=== PATIENT | female | born 1960 | race Caucasian/White ===

== ENCOUNTER 2016-11-27 14:07 | Inpatient (IN) | payer OTHER ==
[~2016-11-27] VITALS: Ht 162.6 cm; Wt 57.2 kg
[~2016-11-27 14:07] MED LIST: FERL PO; LAC PO; LAC30L PO; LEVAQUIN750 MG PO; PRI20 PO; ZYRTEC10 MG PO
[2016-11-27 15:41] LABS: BASOPHIL % 0.7 % (0-2)
[2016-11-27 15:42] LABS: PLATELET COUNT 89 x10^3mcL (130-400); RED CELL DISTRIBUTION WIDTH 16.6 % (11.5-14.5)
[2016-11-27 15:43] LABS: CALCIUM 9.8 mg/dL (8.5-10.1); CARBON DIOXIDE 29.2 mmol/L (21-32); CHLORIDE SERUM 105 mmol/L (98-107); GFR1 > 60 mL/min; GLUCOSE SERUM 102 mg/dL (74-106); POTASSIUM SERUM 3.8 mmol/L (3.5-5.1); SODIUM SERUM 143 mmol/L (136-145)
[2016-11-27 15:48] LABS: ALBUMIN 3.7 g/dL (3.4-5.0); ALKALINE PHOSPHATASE 75 U/L (46-116); ALT/SGPT 26 U/L (14-59); AST/SGOT 22 U/L (15-37); BILIRUBIN TOTAL 0.5 mg/dL (0.20-1.00)
[2016-11-27] MEDS ORDERED: IMBRUVICA140 MG PO (16:57)
[2016-11-27] MEDS ORDERED: LEVO-T50 MCG PO (16:58)
[2016-11-27] MEDS ORDERED: DUEXIS1 TAB PO (17:00)
[2016-11-27 17:27] LABS: UA SPECIFIC GRAVITY 1.025 (1.005-1.035); microscopic required? YES; urine erythrocyte NEGATIVE (NEGATIVE)
[2016-11-27 18:00] VITALS: BP 128/63
[2016-11-27 18:19] LABS: AMPHETAMINE QUAL UR NONE DETECTED (NEG <=1000)
[2016-11-27 18:28] LABS: T3 TOTAL 0.83 ng/mL
[2016-11-27 18:50] LABS: FREE T4 1.18 ng/dL (0.76-1.46); FREE THYROXINE INDEX 3.6 ug/dL (1.4-4.5)
[2016-11-27 19:06] LABS: PHOSPHOROUS 4.1 mg/dL (2.5-4.9)
[2016-11-27 21:39] VITALS: BP 121/53
[2016-11-28 05:46] VITALS: BP 100/61
[2016-11-28 06:44] LABS: CALCIUM 8.1 mg/dL (8.5-10.1); CHLORIDE SERUM 109 mmol/L (98-107); GFR1 > 60 mL/min; GLUCOSE SERUM 126 mg/dL (74-106); SODIUM SERUM 143 mmol/L (136-145)
[2016-11-28 09:19] VITALS: BP 127/88
[2016-11-28 13:44] VITALS: BP 115/60
[2016-11-28 17:36] VITALS: BP 92/62
[2016-11-28 20:51] VITALS: BP 101/53
[2016-11-29 05:44] VITALS: BP 126/55
[2016-11-29 06:34] LABS: BASOPHIL % 0.6 % (0-2); PLATELET COUNT 77 x10^3mcL (130-400); RED CELL DISTRIBUTION WIDTH 16.8 % (11.5-14.5)
[2016-11-29 06:54] LABS: CALCIUM 7.8 mg/dL (8.5-10.1); CARBON DIOXIDE 27.8 mmol/L (21-32); CHLORIDE SERUM 106 mmol/L (98-107); GFR1 > 60 mL/min; GLUCOSE SERUM 95 mg/dL (74-106); POTASSIUM SERUM 3.5 mmol/L (3.5-5.1); SODIUM SERUM 141 mmol/L (136-145)
[2016-11-29 07:52] LABS: rbc morphology (normal/abnorm) ABNORMAL (NORMAL)
[2016-11-29 09:16] VITALS: BP 105/60
[2016-11-29] MEDS ORDERED: FER300 PO (09:43)
[2016-11-29] MEDS ORDERED: OSCD PO (09:44)
[2016-11-29] MEDS ORDERED: MOT800 PO (09:44)
[2016-11-29] MEDS ORDERED: MAC100 PO (09:45)
[2016-11-29 12:57] VITALS: BP 105/60
== END 2016-11-29 16:16 | disposition home or self-care (01) | DRG 54 ==
LOC: ED 14:07 → DU 16:29 → MU 16:29 → DU 17:26 → MU 11-29 07:00
PROVIDERS: Emergency Medicine; ADMIT Family Medicine
DX: G44.41 Drug-induced headache, not elsewhere classified, intractable (principal); N17.0 Acute kidney failure with tubular necrosis; C91.10 Chronic lymphocytic leukemia of B-cell type not having achieved remission; N39.0 Urinary tract infection, site not specified; E11.65 Type 2 diabetes mellitus with hyperglycemia; J45.909 Unspecified asthma, uncomplicated; E02 Subclinical iodine-deficiency hypothyroidism; Z68.21 Body mass index [BMI] 21.0-21.9, adult; T45.1X5A Adverse effect of antineoplastic and immunosuppressive drugs, initial encounter; Y92.018 Other place in single-family (private) house as the place of occurrence of the external cause; Z90.710 Acquired absence of both cervix and uterus; Z82.49 Family history of ischemic heart disease and other diseases of the circulatory system; Z83.2 Family history of diseases of the blood and blood-forming organs and certain disorders involving the immune mechanism; D50.9 Iron deficiency anemia, unspecified; E83.51 Hypocalcemia
CPT/HCPCS: 82962; 83880; 84439; 90658; J0696; J1885; J2765; J2916; J7030; J7613; Q0092

== ENCOUNTER 2017-01-05 11:40 | Emergency (ER) | payer OTHER ==
[~2017-01-05 11:40] MED LIST changes: +DUEXIS1 TAB PO; +FER300 PO; +IMBRUVICA140 MG PO; +LEVO-T50 MCG PO; +MAC100 PO; +MOT800 PO; +OSCD PO
[2017-01-05 12:17] LABS: BASOPHIL % 0.8 % (0-2)
[2017-01-05 12:27] LABS: CALCIUM 8.8 mg/dL (8.5-10.1); CARBON DIOXIDE 30.6 mmol/L (21-32); CHLORIDE SERUM 103 mmol/L (98-107); GFR1 > 60 mL/min; GLUCOSE SERUM 96 mg/dL (74-106); POTASSIUM SERUM 3.4 mmol/L (3.5-5.1); SODIUM SERUM 141 mmol/L (136-145)
[2017-01-05 12:29] LABS: PLATELET COUNT 119 x10^3mcL (130-400); RED CELL DISTRIBUTION WIDTH 17.3 % (11.5-14.5)
[2017-01-05 12:32] LABS: ALBUMIN 3.7 g/dL (3.4-5.0); ALKALINE PHOSPHATASE 79 U/L (46-116); ALT/SGPT 27 U/L (14-59); AMYLASE 62 U/L (25-115); AST/SGOT 26 U/L (15-37); BILIRUBIN TOTAL 0.8 mg/dL (0.20-1.00); LIPASE 263 IU/L (73-393)
[2017-01-05 15:38] LABS: microscopic required? YES; urine erythrocyte TRACE (NEGATIVE)
[2017-01-05 16:22] VITALS: BP 123/72
== END 2017-01-05 16:29 | disposition home or self-care (01) ==
LOC: ED 11:40
PROVIDERS: Emergency Medicine
DX: N39.0 Urinary tract infection, site not specified (principal); J45.909 Unspecified asthma, uncomplicated; Z90.710 Acquired absence of both cervix and uterus
CPT/HCPCS: 83880; J2270; J2405; J3490

== ENCOUNTER → 2017-03-26 | Outpatient (CLI) | payer OTHER | END | disposition home or self-care (01) | LOC: MA 13:17 | PROC: BH02ZZZ Plain Radiography of Bilateral Breasts (ICD-10-PCS; principal; 2017-03-26) | DX: C91.10 Chronic lymphocytic leukemia of B-cell type not having achieved remission (principal); Z12.31 Encounter for screening mammogram for malignant neoplasm of breast | CPT/HCPCS: 77067 ==

== ENCOUNTER 2018-06-10 07:45 | Inpatient (IN) | payer OTHER ==
[~2018-06-10] VITALS: Ht 165.1 cm; Wt 46.3 kg
[2018-06-10 07:46] VITALS: Ht 165.1 cm; Wt 46.3 kg
[2018-06-10 08:37] LABS: BASOPHIL % 1.5 % (0-2); PLATELET COUNT 106 x10^3mcL (130-400)
[2018-06-10 09:02] LABS: CALCIUM 8.5 mg/dL (8.5-10.1); CARBON DIOXIDE 25.3 mmol/L (21-32); CHLORIDE SERUM 104 mmol/L (98-107); CREATININE SERUM 0.9 mg/dL (0.6-1.0); GFR1 > 60 mL/min; GLUCOSE SERUM 127 mg/dL (74-106); POTASSIUM SERUM 3.3 mmol/L (3.5-5.1); SODIUM SERUM 140 mmol/L (136-145)
[2018-06-10 09:11] LABS: ALBUMIN 3.7 g/dL (3.4-5.0); ALKALINE PHOSPHATASE 67 U/L (46-116); ALT/SGPT 22 U/L (14-59); AST/SGOT 23 U/L (15-37); BILIRUBIN TOTAL 0.5 mg/dL (0.20-1.00); HDL CHOLESTEROL 42 mg/dL (40-60); LIPASE 477 IU/L (73-393); T4(THYROXINE) 12.5 ug/dL (4.7-13.3)
[2018-06-10 09:14] LABS: AMYLASE 128 U/L (25-115); CHOLESTEROL 228 mg/dL (<200)
[2018-06-10 10:32] LABS: AMPHETAMINE QUAL UR NONE DETECTED (See below)
[2018-06-10 12:39] LABS: MAGNESIUM 1.9 mg/dL (1.8-2.4); PHOSPHOROUS 4.1 mg/dL (2.5-4.9)
[2018-06-10 14:55] VITALS: BP 95/57
[2018-06-10 18:06] VITALS: BP 146/81
[2018-06-10 21:48] VITALS: BP 112/64
[2018-06-10 23:50] LABS: microscopic required? YES; urine erythrocyte NEGATIVE (NEGATIVE)
[2018-06-11 05:50] VITALS: BP 114/54
[2018-06-11 06:49] LABS: CALCIUM 8.1 mg/dL (8.5-10.1); CARBON DIOXIDE 23.9 mmol/L (21-32); CHLORIDE SERUM 109 mmol/L (98-107); CREATININE SERUM 0.8 mg/dL (0.6-1.0); GFR1 > 60 mL/min; GLUCOSE SERUM 77 mg/dL (74-106); SODIUM SERUM 142 mmol/L (136-145)
[2018-06-11 09:09] LABS: AMYLASE 106 U/L (25-115); LIPASE 222 IU/L (73-393)
[2018-06-11 09:32] LABS: PLATELET COUNT 90 x10^3mcL (130-400); RED CELL DISTRIBUTION WIDTH 15.4 % (11.5-14.5)
[2018-06-11 10:08] VITALS: BP 111/67
[2018-06-11 14:59] LABS: BAND NEUTROPHIL 36 % (0-10); SEGMENTED NEUTROPHILS 44 % (37-75)
[2018-06-11 15:00] LABS: ATYPICAL LYMPH 4 %; BASOPHIL 0 % (0-2); MONOCYTE 14 % (0-7); PLATELET MORPHOLOGY PLATELETS DECREASED; rbc morphology (normal/abnorm) ABNORMAL (NORMAL)
[2018-06-11] MEDS ORDERED: SYNTHROID0.05 MG PO (16:25)
[2018-06-11] MEDS ORDERED: IMBRUVICA280 MG PO (16:28)
[2018-06-11 17:02] VITALS: BP 111/67
[2018-06-11 18:00] VITALS: BP 118/62
== END 2018-06-11 19:24 | disposition home or self-care (01) | DRG 282 ==
LOC: ED 07:45 → MU 11:30 → DU 11:30 → MU 15:39
PROVIDERS: Emergency Medicine; Internal Medicine; ADMIT General Practice
DX: K85.90 Acute pancreatitis without necrosis or infection, unspecified (principal); N17.0 Acute kidney failure with tubular necrosis; C91.11 Chronic lymphocytic leukemia of B-cell type in remission; N39.0 Urinary tract infection, site not specified; E87.6 Hypokalemia; E78.5 Hyperlipidemia, unspecified; E02 Subclinical iodine-deficiency hypothyroidism; D69.6 Thrombocytopenia, unspecified; J45.909 Unspecified asthma, uncomplicated; F79 Unspecified intellectual disabilities; Z68.21 Body mass index [BMI] 21.0-21.9, adult; Z79.1 Long term (current) use of non-steroidal anti-inflammatories (NSAID); Z90.710 Acquired absence of both cervix and uterus; Z82.49 Family history of ischemic heart disease and other diseases of the circulatory system; Z80.6 Family history of leukemia
CPT/HCPCS: 92526-GN; 92610; J0696; J7030

== ENCOUNTER 2018-07-01 13:12 | Emergency (ER) | payer OTHER ==
[~2018-07-01] VITALS: Ht 162.6 cm; Wt 52.2 kg
[~2018-07-01 13:12] MED LIST changes: +IMBRUVICA280 MG PO; +SYNTHROID0.05 MG PO
[2018-07-01 13:46] VITALS: Ht 162.6 cm; Wt 52.2 kg
[2018-07-01 14:24] LABS: BASOPHIL % 0.8 % (0-2)
[2018-07-01 14:25] LABS: PLATELET COUNT 112 x10^3mcL (130-400); RED CELL DISTRIBUTION WIDTH 14.9 % (11.5-14.5)
[2018-07-01 14:30] LABS: CALCIUM 8.9 mg/dL (8.5-10.1); CARBON DIOXIDE 30.6 mmol/L (21-32); CHLORIDE SERUM 103 mmol/L (98-107); CREATININE SERUM 0.9 mg/dL (0.6-1.0); GFR1 > 60 mL/min; GLUCOSE SERUM 93 mg/dL (74-106); POTASSIUM SERUM 3.9 mmol/L (3.5-5.1); SODIUM SERUM 140 mmol/L (136-145)
[2018-07-01 14:34] LABS: ALBUMIN 3.8 g/dL (3.4-5.0); ALKALINE PHOSPHATASE 69 U/L (46-116); ALT/SGPT 21 U/L (14-59); AST/SGOT 22 U/L (15-37); BILIRUBIN TOTAL 0.6 mg/dL (0.20-1.00); LIPASE 254 IU/L (73-393); TOTAL PROTEIN, SERUM 7.4 g/dL (6.4-8.2)
[2018-07-01 18:17] VITALS: BP 120/76
== END 2018-07-01 18:17 | disposition home or self-care (01) ==
LOC: ED 13:12
PROVIDERS: Emergency Medicine
DX: S93.402A Sprain of unspecified ligament of left ankle, initial encounter (principal); N39.0 Urinary tract infection, site not specified; R11.2 Nausea with vomiting, unspecified; C95.90 Leukemia, unspecified not having achieved remission; J45.909 Unspecified asthma, uncomplicated; Z90.710 Acquired absence of both cervix and uterus; W01.0XXA Fall on same level from slipping, tripping and stumbling without subsequent striking against object, initial encounter; Y93.89 Activity, other specified; Y92.89 Other specified places as the place of occurrence of the external cause; Y99.8 Other external cause status
CPT/HCPCS: 36415

== ENCOUNTER 2018-09-29 20:06 | Emergency (ER) | payer OTHER ==
[~2018-09-29] VITALS: Ht 157.5 cm; Wt 49.0 kg
[2018-09-29 20:12] VITALS: Ht 157.5 cm; Wt 49.0 kg
[2018-09-29 21:28] VITALS: BP 122/73
== END 2018-09-29 21:28 | disposition home or self-care (01) ==
LOC: ED 20:06
DX: S40.862A Insect bite (nonvenomous) of left upper arm, initial encounter (principal); S40.861A Insect bite (nonvenomous) of right upper arm, initial encounter; S80.862A Insect bite (nonvenomous), left lower leg, initial encounter; S80.861A Insect bite (nonvenomous), right lower leg, initial encounter; J45.909 Unspecified asthma, uncomplicated; Z90.710 Acquired absence of both cervix and uterus; W57.XXXA Bitten or stung by nonvenomous insect and other nonvenomous arthropods, initial encounter; Y93.89 Activity, other specified; Y92.89 Other specified places as the place of occurrence of the external cause; Y99.8 Other external cause status

== ENCOUNTER 2018-12-20 13:08 | Emergency (ER) | payer OTHER ==
[~2018-12-20] VITALS: Ht 152.4 cm; Wt 46.7 kg
[2018-12-20 13:23] VITALS: Ht 152.4 cm; Wt 46.7 kg
[2018-12-20 13:52] VITALS: BP 148/77
== END 2018-12-20 13:52 | disposition home or self-care (01) ==
LOC: ED 13:08
DX: S60.212A Contusion of left wrist, initial encounter (principal); J45.909 Unspecified asthma, uncomplicated; C91.10 Chronic lymphocytic leukemia of B-cell type not having achieved remission; Z90.710 Acquired absence of both cervix and uterus; W55.03XA Scratched by cat, initial encounter; Y93.89 Activity, other specified; Y92.89 Other specified places as the place of occurrence of the external cause; Y99.8 Other external cause status
CPT/HCPCS: 90715

== ENCOUNTER → 2019-01-07 | Outpatient (CLI) | payer OTHER | END | disposition home or self-care (01) | LOC: MA 10:30 | PROC: BH02ZZZ Plain Radiography of Bilateral Breasts (ICD-10-PCS; principal; 2019-01-07) | DX: C91.10 Chronic lymphocytic leukemia of B-cell type not having achieved remission (principal); Z12.31 Encounter for screening mammogram for malignant neoplasm of breast | CPT/HCPCS: 77067 ==